=== PATIENT | male | born 1985 | race Asian ===

== ENCOUNTER 2017-08-10 15:28 | Emergency (ER) | payer MEDICAID ==
--- NOTE | 2017-08-10 16:23 | ED Physician Chart ---
ED Chief Complaint/HPI - Patient Information Date Seen:: 08/10/17 Time Seen:: 16:05 Chief Complaint:: low back pain History of Present Illness:: Patient's had low back pain for last one and one half weeks. He denies trauma. The symptoms are getting worse since he now is experiencing numbness of his right buttocks and right posterior thigh. Patient denies bladder or bowel problems. No illicit drug injection. 2 months ago patient had back pain lasting one week which occurred after lifting. 2 years ago patient had 2 weeks of back pain after shoveling. Patient is concerned he may have an autoimmune disease so to reassure the patient I am ordering a CBC and sedimentation rate. Allergies:: Allergies Allergy/AdvReac Type Severity Reaction Status Date / Time No Known Allergies Allergy Verified 08/10/17 15:51 Vitals:: Vital Signs - 8 hr 08/10/17 15:51 Temp 97.7 F HR 87 RR 16 BP 139/92 O2 Sat % 98 Historian:: Patient Review:: Nurse's Note Reviewed ED Review of Systems - Review of Systems General/Constitutional: No fever, No chills, No weight loss, No weakness, No diaphoresis, No edema, No loss of appetite Skin: No skin lesions, No rash, No bruising Head: No headache, No light-headedness Eyes: No loss of vision, No pain, No diplopia ENT: No earache, No nasal drainage, No sore throat, No tinnitus Neck: No neck pain, No swelling, No thyromegaly, No stiffness, No mass noted Cardio Vascular: No chest pain, No palpitations, No PND, No orthopnea, No edema Pulmonary: No SOB, No cough, No sputum, No wheezing GI: No nausea, No vomiting, No diarrhea, No pain, No melena, No hematochezia, No constipation, No hematemesis G/U: No dysuria, No frequency, No hematuria Musculoskeletal: Bone or joint pain, Back pain, Muscle pain Endocrine: No polyuria, No polydipsia Psychiatric: No prior psych history, No depression, No anxiety, No suicidal ideation Hematopoietic: No bruising, No lymphadenopathy Allergic/Immuno: No urticaria, No angioedema Neurological: No syncope, No focal symptoms, No weakness, No paresthesia, No headache, No seizure, No dizziness, No confusion, No vertigo ED Past Medical History - Past Medical History Past Medical History: No significant medical hx Family History: Heart disease Social History: Non Smoker, Alcohol, Other (drinks alcohol on the weekends) Surgical History: None Psychiatricy History: None Medication: None Family Medical History - Family Member Grandfather Hx Family Coronary Artery Disease: Yes (CABG) ED Physical Exam - Physical Examination General/Constitutional: Awake, Well-developed, well-nourished, Alert, No distress, GCS 15, Non-toxic appearing, Ambulatory Head: Atraumatic Eyes: Lids, conjuctiva normal, PERRL, EOMI Skin: Nl inspection, No rash, No skin lesions, No ecchymosis, Well hydrated, No lymphadenopathy ENMT: External ears, nose nl, Nasal exam nl, Lips, teeth, gums nl Neck: Nontender, Full ROM w/o pain, No JVD, No nuchal rigidity, No bruit, No mass, No stridor Respiratory: Nl effort/Exclusion, Clear to Auscultation, No Wheeze/Rhonchi/Rales Cardio Vascular: RRR, No murmur, gallop, rubs, NL S1 S2 GI: No tenderness/rebounding/guarding, No organomegaly, No hernia, Normal BS's, Nondistended, No mass/bruits, No McBurney tenderness : No CVA tenderness Extremities: No tenderness or effusion, Full ROM, normal strength in all extremities, No edema, Normal digits & nails Neuro/Psych: Alert/oriented, DTR's symmetric, Normal sensory exam, Normal motor strength, Judgement/insight normal, Mood normal, Normal gait, No focal deficits Other Neuro/Psych comments:: Straight leg raising of 90 bilaterally; strength large toes intact; deep tendon reflexes knees one out of 4 and ankles 2 out of 4. Misc: Normal back, No paraspinal tenderness ED Labs/Radiology/EKG Results - Lab Results Results: Laboratory Results - last 24 hr 08/10/17 16:28 WBC 7.1 RBC 6.43 H Hgb 18.3 Hct 55.3 MCV 86.0 MCH 28.5 MCHC Differential 33.1 RDW 12.2 Plt Count 257 MPV 7.7 Neutrophils % 70.3 Lymphocytes % 22.1 Monocytes % 5.9 Eosinophils % 0.6 Basophils % 1.1 ESR 1 ED Septic Shock - . Is Septic Shock (SBP<90, OR Lactate>4 mmol\L) present?: No - <6hrs of presentation: Vital Signs: Vital Signs - 8 hr 08/10/17 15:51 Temp 97.7 F HR 87 RR 16 BP 139/92 O2 Sat % 98 ED Reassessment (Disposition) - Reassessment Reassessment:: Patient can be assured that he does not have an autoimmune disease since his sedimentation rate is 15. I told him that the back pain will get better with time and that no specific treatment has been shown to be effective. Reassessment Condition:: Improved - Diagnosis Diagnosis:: Low back pain - Patient Disposition Discharge/Transfer:: Home Condition at Disposition:: Stable, Unchanged
[2017-08-10 16:40] LABS: % BASOPHILS 1.1 % (0.0-2.0); % EOSINOPHILS 0.6 % (0.0-5.0); % LYMPHOCYTES 22.1 % (20.0-50.0); % MONOCYTES 5.9 % (2.0-10.0); % NEUTROPHILS 70.3 % (40.0-80.0); BASOPHILE ABSOLUTE 0.1 Th/cumm (0-0.2); HEMATOCRIT 55.3 % (41.0-60); HEMOGLOBIN 18.3 gm/dL (12-16); LYMPHOCYTE ABSOLUTE 1.6 Th/cmm (1.5-3.0); MEAN CORPUSCULAR HEMOGLOBIN 28.5 pg (26.0-30.0); MEAN CORPUSCULAR HGB CONC 33.1 pg (28.0-36.0); MEAN PLATELET VOLUME 7.7 fl; MONOCYTE ABSOLUTE 0.4 Th/cmm (0.3-1.0); PLATELET COUNT 257 Th/cmm (150-400); RED BLOOD COUNT 6.43 Mil/cmm (4.30-5.70); RED CELL DISTRIBUTION WIDTH 12.2 % (11.5-20.0); WHITE BLOOD COUNT 7.1 Th/cmm (4.8-10.8)
[2017-08-10 17:17] LABS: ESR SEDIMENTATION SED RATE 1 mm/hr (0-20)
== END 2017-08-10 17:32 | disposition home or self-care (01) ==
LOC: ER 15:28
DX: M54.5 Low back pain (principal)
CPT/HCPCS: 36415-UA; 85025-TC; 85652-TC; Z7502

== ENCOUNTER 2017-10-24 17:45 | Emergency (ER) | payer MEDICAID ==
--- NOTE | 2017-10-24 18:19 | ED Physician Chart ---
ED Chief Complaint/HPI - Patient Information Date Seen:: 10/24/17 Time Seen:: 17:58 Chief Complaint:: right upper lip lesion that he picked History of Present Illness:: right upper lip lesion that he picked. Before he picked at it, it was a small clear vesicle. Allergies:: Allergies Allergy/AdvReac Type Severity Reaction Status Date / Time ibuprofen [From Motrin] Allergy Verified 10/24/17 17:56 Vitals:: Vital Signs - 8 hr 10/24/17 17:57 Temp 98.3 F HR 99 RR 17 BP 132/81 O2 Sat % 99 ED Review of Systems - Review of Systems General/Constitutional: No fever, No chills, No weight loss, No weakness, No diaphoresis, No edema, No loss of appetite Skin: Other (one small area of recent scar tissue located on the right upper lip. according to the patient, the area was clear and fluid filled but that he pushed on it and clear fluid came out. ) Head: No headache, No light-headedness Eyes: No loss of vision, No pain, No diplopia ENT: No earache, No nasal drainage, No sore throat, No tinnitus Neck: No neck pain, No swelling, No thyromegaly, No stiffness, No mass noted Cardio Vascular: No chest pain, No palpitations, No PND, No orthopnea, No edema Pulmonary: No SOB, No cough, No sputum, No wheezing GI: No nausea, No vomiting, No diarrhea, No pain, No melena, No hematochezia, No constipation, No hematemesis G/U: No dysuria, No frequency, No hematuria Musculoskeletal: No bone or joint pain, No back pain, No muscle pain Endocrine: No polyuria, No polydipsia Psychiatric: No prior psych history, No depression, No anxiety, No suicidal ideation Hematopoietic: No bruising, No lymphadenopathy Allergic/Immuno: No urticaria, No angioedema Neurological: No syncope, No focal symptoms, No weakness, No paresthesia, No headache, No seizure, No dizziness, No confusion, No vertigo Family Medical History - Family Member Grandfather Hx Family Coronary Artery Disease: Yes (CABG) ED Physical Exam - Physical Examination General/Constitutional: Awake, Well-developed, well-nourished, Alert, No distress, GCS 15, Non-toxic appearing, Ambulatory Head: Atraumatic Eyes: Lids, conjuctiva normal, PERRL, EOMI Other Skin comments:: one small area of recent scar tissue located on the right upper lip. according to the patient, the area was clear and fluid filled but that he pushed on it and clear fluid came out. patient wanted me to send off blood work for him to see if he has the herpes simplex virus type I. I told him that this was not an emergency and that he could report to the health department for this or to his primary care physician if he wanted to be checked out. No concerns for any sexually transmitted diseases. ENMT: Lips, teeth, gums nl Other ENMT comments:: one small area of recent scar tissue located on the right upper lip which measures less than 2 mm in size. according to the patient, the area was clear and fluid filled but that he pushed on it and clear fluid came out. patient wanted me to send off blood work for him to see if he has the herpes simplex virus type I. I told him that this was not an emergency and that he could report to the health department for this or to his primary care physician if he wanted to be checked out. No concerns for any sexually transmitted diseases. Neck: Nontender, Full ROM w/o pain, No JVD, No nuchal rigidity, No bruit, No mass, No stridor ED Assessment - Assessment General Assessment: Herpes simplex virus type I. ED Septic Shock - . Is Septic Shock (SBP<90, OR Lactate>4 mmol\L) present?: No - <6hrs of presentation: Vital Signs: Vital Signs - 8 hr 10/24/17 17:57 Temp 98.3 F HR 99 RR 17 BP 132/81 O2 Sat % 99 ED Reassessment (Disposition) - Reassessment Reassessment Condition:: Unchanged - Diagnosis Diagnosis:: Herpes simplex virus type I. This is infectious to others. - Aftercare/Follow up Instructions Aftercare/Follow-Up Instructions:: Refer to Discharge Instructions Medication Prescribed:: acyclovir - Patient Disposition Discharge/Transfer:: Home Condition at Disposition:: Stable
== END 2017-10-24 18:30 | disposition home or self-care (01) ==
LOC: ER 17:45
DX: B00.1 Herpesviral vesicular dermatitis (principal); Z88.6 Allergy status to analgesic agent
CPT/HCPCS: Z7502